=== PATIENT | female | born 1970 | race Caucasian/White ===

== ENCOUNTER 2016-11-21 06:59 | Day surgery (SDC) | payer OTHER ==
[~2016-11-21] VITALS: Ht 157.5 cm; Wt 86.2 kg
[~2016-11-21 06:59] MED LIST: AVIANE1 EACH PO; KLONOPIN0.5 M1 PO; LEXAPRO10 MG PO
[2016-11-21 07:31] VITALS: BP 118/76
[2016-11-21 10:15] VITALS: BP 118/75
[2016-11-21 10:56] VITALS: BP 113/65
[2016-11-24 12:55] LABS: INTERNAL CONTROL VALID? YES
== END 2016-11-21 11:10 | disposition home or self-care (01) ==
LOC: SDC 06:59
PROVIDERS: Ophthalmology
DX: H35.371 Puckering of macula, right eye (principal); F41.9 Anxiety disorder, unspecified
CPT/HCPCS: 84703; J0690; J1100; J2405; J2795; J3300